=== PATIENT | female | born 1945 | race Caucasian/White ===

== ENCOUNTER 2017-08-05 01:52 | Outpatient (CLI) | payer MEDICARE, OTHER ==
--- NOTE | 2017-08-05 11:38 | MMO ---
SCREENING MAMMOGRAPHY: DATE: 08/05/16. COMPARISON: 08/13/15, 02/15/10. HISTORY: Screening mammogram. FINDINGS: The patient's mammogram is interpreted with the assistance of computer-aided detection. The breast parenchyma is primary fatty replaced. Benign calcifications are seen bilaterally. There is a post biopsy clip present on the left. There is no dominant mass lesion, architectural distortio n or a concerning calcification seen. IMPRESSION: BI-RADS 2 - benign findings. Annual screening mammography advised. POS: [facility]
== END 2017-08-05 01:53 | disposition home or self-care (01) ==
LOC: SCSMAMMO 01:52
PROVIDERS: ATTEND Family Medicine
DX: Z12.31 Encounter for screening mammogram for malignant neoplasm of breast (principal)
CPT/HCPCS: 77067; G0202

== ENCOUNTER 2019-11-22 08:11 | Outpatient (CLI) | payer MEDICARE ==
--- NOTE | 2019-11-22 08:43 | MMO ---
Bilateral MAMMO Bilat Screen [facility]. CLINICAL HISTORY: Patient is 74 years old and is seen for screening. The patient has no family history of breast cancer. The patient has no personal history of cancer. The patient has a history of left Excisional Biopsy in 2017 - benign. VIEWS: The views performed were: bilateral craniocaudal with tomosynthesis and bilateral mediolateral oblique with tomosynthesis. FILMS COMPARED: The present examination has been compared to prior imaging studies performed at [facility] on 08/20/2015, 08/23/2015 and 08/05/2017. This study has been interpreted with the assistance of computer-aided detection. MAMMOGRAM FINDINGS: The breasts are almost entirely fat. Finding 1: There are stable benign appearing calcifications seen in both breasts. Finding 2: There is a stable biopsy clip seen in the left breast. There are no suspicious masses, suspicious calcifications, or new areas of architectural distortion. IMPRESSION: THERE IS NO MAMMOGRAPHIC EVIDENCE OF MALIGNANCY. A ROUTINE FOLLOW-UP MAMMOGRAM IN 1 YEAR IS RECOMMENDED. THE RESULTS OF THIS EXAM WERE SENT TO THE PATIENT. ACR BI-RADS Category 2 - Benign finding MAMMOGRAPHY NOTE: 1. A negative mammogram report should not delay a biopsy if a dominant of clinically suspicious mass is present. 2. Approximately 10% to 15% of breast cancers are not detected by mammography. 3. Adenosis and dense breasts may obscure an underlying neoplasm. Reported by: LILLI ALVARES MD Electonically Signed: [id number]
== END 2019-11-22 08:12 | disposition home or self-care (01) ==
LOC: BICMAMMO 08:11
PROVIDERS: ATTEND Family Medicine
DX: Z12.31 Encounter for screening mammogram for malignant neoplasm of breast (principal); Z91.89 Other specified personal risk factors, not elsewhere classified
CPT/HCPCS: 77063; 77067

== ENCOUNTER 2021-10-23 09:08 | Outpatient (CLI) | payer MEDICARE | END 2021-10-23 09:09 | disposition home or self-care (01) | LOC: BICULT 09:08 | PROVIDERS: ATTEND Internal Medicine Nephrology | DX: N18.30 Chronic kidney disease, stage 3 unspecified (principal); N28.1 Cyst of kidney, acquired | CPT/HCPCS: 76770; 93975 ==